=== PATIENT | female | born 1975 | race Caucasian/White ===

== ENCOUNTER 2022-01-08 04:14 | Emergency (ER) | payer OTHER ==
[~2022-01-08] VITALS: Ht 160 cm; Wt 79.4 kg
[~2022-01-08 04:14] MED LIST: ASPI-605 PO; LISI-768 PO; METF-440 PO
[2022-01-08] MEDS ORDERED: METOCLOPRAMIDE HCL 10 MG/2 ML VIAL IV ONE (04:30)
[2022-01-08] MEDS ORDERED: MECLIZINE HCL 12.5 MG TABLET PO ONE (04:30)
[2022-01-08] MEDS ORDERED: IV NS 0.9% 1,000 ML BAG IV ONE (04:30)
--- NOTE | 2022-01-08 04:30 | NUR ---
TO ER BED 1. BIBSELF C/O HEADACHE AND DIZZINESS X THIS MORNING. PT TOOK TYLENOL WITHOUT RELIEF. PT DENIES ANY CHEST PAIN. NOT IN RESPIRATORY DISTRESS. CONNECTED TO MONITOR. AWAITING MD GRIMES.
[2022-01-08] MEDS ORDERED: MECLIZINE HCL 25 MG TABLET ONE (04:33)
[2022-01-08] MEDS ORDERED: METOCLOPRAMIDE HCL 10 MG/2 ML VIAL ONE (04:33)
--- NOTE | 2022-01-08 04:40 | NUR ---
IV LINE ESTABLISHED, RAC 18G
[2022-01-08] MEDS ORDERED: MECL-159 PO (06:10)
[2022-01-08] MEDS ORDERED: ONDA4TAB5 PO (06:10)
--- NOTE | 2022-01-08 06:17 | NUR ---
Patient discharged to home in stable condition. Written and verbal after care instructions given. Patient verbalizes understanding of instruction.
--- NOTE | 2022-01-08 06:17 | NUR ---
IV removed. Catheter intact and site benign. Pressure and 4x4 applied to site. No bleeding noted.
[2022-01-08 06:19] VITALS: BP 130/80
== END 2022-01-08 06:20 | disposition home or self-care (01) ==
LOC: ER 04:17
DX: H81.399 Other peripheral vertigo, unspecified ear (principal); R51.9 Headache, unspecified; E11.9 Type 2 diabetes mellitus without complications; Z79.899 Other long term (current) drug therapy; Z79.82 Long term (current) use of aspirin; Z79.84 Long term (current) use of oral hypoglycemic drugs
CPT/HCPCS: 96361; 96374; 99283; J2765; J7030; J8597

== ENCOUNTER 2023-08-16 22:46 | Emergency (ER) | payer OTHER ==
[~2023-08-16] VITALS: Ht 160 cm; Wt 79.4 kg
[~2023-08-16 22:46] MED LIST changes: +MECL-159 PO; +ONDA4TAB5 PO
[2023-08-17] MEDS ORDERED: predniSONE 20 MG TABLET PO ONE
[2023-08-17] MEDS ORDERED: FAMOTIDINE (20 MG) 20 MG TABLET PO ONE
[2023-08-17] MEDS ORDERED: diphenhydrAMINE HCL 25 MG CAPSULE PO ONE
[2023-08-17] MEDS ORDERED: FAMOTIDINE (20 MG) 20 MG TABLET ONE (00:03)
[2023-08-17] MEDS ORDERED: predniSONE 20 MG TABLET ONE (00:03)
[2023-08-17] MEDS ORDERED: diphenhydrAMINE HCL 25 MG CAPSULE ONE (00:03)
[2023-08-17 00:09] LABS: APPEARANCE,URINE CLOUDY (CLEAR); BILIRUBIN,URINE NEGATIVE (NEGATIVE); BLOOD, URINE 2+ Ery/uL (NEGATIVE); COLOR,URINE DARK YELLOW (YELLOW); KETONES,URINE TRACE mg/dL (NEGATIVE); LEUKOCYTE ESTERASE ,URINE 1+ (NEGATIVE); NITRITE, URINE POSITIVE (NEGATIVE); PROTEIN,URINE 3+ mg/dl (NEGATIVE); UGLUCOSE TRACE mg/dL (NEGATIVE)
[2023-08-17 00:12] LABS: PREGNANCY TEST URINE QUAL NEGATIVE (NEGATIVE)
[2023-08-17 00:25] LABS: ADD URINE CULTURE YES; BACTERIA,URINE 2+ /HPF (None Seen); RBC,URINE 21-50 /HPF (0-2)
[2023-08-17 00:26] LABS: MUCUS,URINE Moderate /LPF (None Seen)
[2023-08-17] MEDS ORDERED: CEPHALEXIN MONOHYDRATE 500 MG CAPSULE PO ONE (01:00)
[2023-08-17] MEDS ORDERED: CEPH500C2 PO (01:22)
[2023-08-17 01:29] VITALS: BP 142/78; TEMP 98.3; O2SAT 99
== END 2023-08-17 01:30 | disposition home or self-care (01) ==
LOC: ER 22:56
DX: N39.0 Urinary tract infection, site not specified (principal); T78.40XA Allergy, unspecified, initial encounter; I10 Essential (primary) hypertension; E11.9 Type 2 diabetes mellitus without complications; G43.909 Migraine, unspecified, not intractable, without status migrainosus; Z79.84 Long term (current) use of oral hypoglycemic drugs; Z79.899 Other long term (current) drug therapy; X58.XXXA Exposure to other specified factors, initial encounter
CPT/HCPCS: 99284; 87086; 84703; 81001; Q0163; J7512